=== PATIENT | female | born 1950 | race Two or more races ===

== ENCOUNTER 2024-11-09 14:44 | Emergency (ER) | payer BC ==
[~2024-11-09] VITALS: Ht 157.5 cm; Wt 68.0 kg
[2024-11-09] MEDS ORDERED: EZALLOR SPRINKLE5 MG PO (15:46)
[2024-11-09 15:48] VITALS: BP 152/84; O2SAT 99
== END 2024-11-09 18:06 | disposition home or self-care (01) ==
LOC: ER 14:44
DX: G89.11 Acute pain due to trauma (principal); M25.521 Pain in right elbow; M25.531 Pain in right wrist